=== PATIENT | female | born 1990 | race Caucasian/White ===

== ENCOUNTER 2024-03-24 21:23 | Emergency (ER) | payer MEDICAID ==
[~2024-03-24] VITALS: Ht 157.5 cm; Wt 50.6 kg
[~2024-03-24 21:23] MED LIST: FLO110IN IH; IBUP-1984 PO; METHYLTREXATE; MOT200T PO; ONDA4TAB6 PO; TRAM50TA2 PO; [UNRECOGNIZED DRUG - CODE] PO
[2024-03-24 21:34] VITALS: BP 102/62; PULSE 84; RESP 16; TEMP 98.1; O2SAT 95
== END 2024-03-25 02:26 | disposition left against medical advice (07) ==
LOC: ER 21:24
DX: R10.9 Unspecified abdominal pain (principal); Z53.21 Procedure and treatment not carried out due to patient leaving prior to being seen by health care provider

== ENCOUNTER 2024-07-11 10:56 | Outpatient (CLI) | payer MEDICAID | END 2024-07-11 23:59 | disposition home or self-care (01) | LOC: RAD 10:56 | PROVIDERS: ATTEND Podiatrist Foot & Ankle Surgery | DX: S92.311A Displaced fracture of first metatarsal bone, right foot, initial encounter for closed fracture (principal); S92.321A Displaced fracture of second metatarsal bone, right foot, initial encounter for closed fracture; M79.671 Pain in right foot; X58.XXXA Exposure to other specified factors, initial encounter; Y93.89 Activity, other specified; Y92.89 Other specified places as the place of occurrence of the external cause; Y99.8 Other external cause status | CPT/HCPCS: 73700 ==

== ENCOUNTER 2025-03-25 13:57 | Emergency (ER) | payer MEDICAID ==
[~2025-03-25] VITALS: Ht 157.5 cm; Wt 54.5 kg
[2025-03-25 14:07] VITALS: TEMP 96.9
--- NOTE | 2025-03-25 14:11 | Physician Documentation ---
History of Present Illness Stated Complaint: "MY LIVER IS GIVING OUT" Primary Medical Doctor: Dr. David FREEMAN HPI This 34-year-old female presents with right-sided flank pain. States unable to get into a comfortable position. Denies any history of kidney stones. Denies any history of alcoholism as well . pt was hunched over during interview. afebrile. Patient reports no dysuria. Patient reports last menstrual period one month prior Day of Onset: Mar 25, 2025 Medication Reconciliation Allergies: Coded Allergies: morphine (Verified Allergy, Intermediate, JAW TIGHTENS, 03/24/24) Scheduled Fluticasone Propionate 110 MCG* (Flovent Hfa 110 MCG*), 1 PUFF IH BID Ibuprofen* (Motrin*), 400 MG PO TID, (Reported) Naloxone HCl (Narcan), 1 SPRAYS BOTHNARES ONCE Ondansetron Hcl (Zofran), 1 TAB PO Q6H Tramadol HCl (Tramadol HCl), 50 MG PO Q6H Scheduled PRN Guaifenesin/D-Methorphan Hb (Robitussin-Dm Cough Syrup), 10 ML PO Q6H PRN Ibuprofen* (Motrin*), 600 MG PO TID PRN Oxycodone HCl/Acetaminophen (Percocet 5-325 mg Tablet), 1 TAB PO QID PRN PRN for breakthrough pain Miscellaneous Medications [Methyltrexate], (Reported) Past Medical History Past Medical History: Seizures Past Surgical History: other Alcohol Use: Occasionally Drug Use: none Lives with: S/O, Family Lives In: Home Occupation: employed Review of Systems All Other Systems at this time: Reviewed and Negative ROS As stated above in the HPI, otherwise all systems are reviewed and negative. Physical Exam Vital Signs: RN Vital Signs have been reviewed: Yes, Heart Rate: 80, Respiratory Rate: 15, BP: 115/78, Pulse Oximetry: 100, Weight: 54.55 Pulse Oximetry Reflects: adequate oxygenation Physical Exam General: Alert, nontoxic appearing, painful appearing, otherwise no apparent distress. Respiratory: Lungs clear, no respiratory distress. CV: Regular rate and rhythm no murmur Gastrointestinal: Soft, nontender, nondistended. Bowels sounds present. Back: Right-sided tenderness to palpation, positive right side CVA tendernerss Neurologic: Oriented x4. Psychiatric: Normal mood and affect. Skin: Normal color, warm and dry. No edema, no ecchymosis. Progress EKG/XRAY/CT/US/VASC/MRI Ultrasound #1: Impression OBSTETRIC ULTRASOUND PRIOR TO 14 WEEKS CLINICAL INDICATION: Flank Pain w/Pos Urine Preg TECHNIQUE: Multiple grayscale ultrasound images were obtained of the pelvis via transabdominal approach for obstetric evaluation. Limited color Doppler and spectral Doppler acquisitions were also obtained. COMPARISON: None FINDINGS: Examination is limited as exam was painful for the patient. Uterus: 9.9 x 4.9 x 5.8 cm. There is a single intrauterine gestational sac is visualized measuring 5.7 mm. A pole is not seen. Right adnexa: right ovary not seen. No right adnexal mass seen. Left adnexa: left ovary not seen. No left adnexal mass seen. Other: None IMPRESSION: 1. Intrauterine gestational sac which based on size could be due to an early intrauterine . No pole is seen at this time follow-up by trending beta HCGs and follow-up ultrasound in 10-14 days. 2. Ovaries are not visualized. Electronically Signed by:KILO DEL TORO MD Date & Time: 03/25/251715 Dictated by: KILO DEL TORO MD Dictation date and time: 03/25/251715 Ultrasound #2: Impression RENAL ULTRASOUND REASON FOR EXAM: R Flank Pain w/Pos Urine Preg. The patient says she feels like she needs to void often but is unable. COMPARISON: None TECHNIQUE: Real-time sector scans in multiple planes were obtained over the kidneys, ureters and bladder. FINDINGS: The right kidney measures 11.0 x 4.2 x 4.7 cm. The left kidney measures 9.7 x 4.1 x 5.0 cm. No mass is identified. There is [id number] hydronephrosis of the right kidney. There is no left hydronephrosis. The patient voided prior to the study and the urinary bladder is decompressed and not well evaluated. IMPRESSION: [id number]-[id number] hydronephrosis of the right kidney. No left hydronephrosis. Electronically Signed by:MAIA PENA MD Date & Time: 03/25/251725 Dictated by: MAIA PENA MD Dictation date and time: 03/25/251725 Medical Decision Making Findings This 34-year-old female presented with right-sided flank pain onset several hours prior to arrival, patient was quite painful on initial presentation however pain was well controlled with Toradol and IV acetaminophen, lab work demonstrate positive urine therefore CT of abdomen and pelvis was canceled and ultrasound utilized to image bilateral kidneys with right-sided hydronephrosis observed consistent with likely urolithiasis based on history and physical. OB ultrasound demonstrated evidence of intra abdominal without evidence of ectopic . Patient was otherwise hemodynamically stable remainder of physical exam benign with labs not demonstrating evidence of systemic infection,or evidence of electrolyte or metabolic derangement. Patient is appropriate for outpatient follow up and referred to urology for follow up. Patient provided home care instructions, return to care precautions, and follow up instructions which he verbalized understanding of. Differential Dx:Considerations: Include: Appendicitis, Cholangitis, Cholelithasis, Constipation, Esophagitis, Gastritis/PUD, Gastroenteritis, Ovarian cyst/torsion, Urinary obstruction, Urinary tract infection, Ur olithiasis, Other (Ectopic ) Departure Time of Disposition: 17:09 Disposition: 01 HOME / SELF CARE / HOMELESS Impression: Primary Impression: Hydronephrosis determined by ultrasound Additional Impression: Intrauterine , incidental Condition: Improved Discharge Instructions: Hydronephrosis, Kidney Stones Additional Instructions: The ultrasound of your kidney showed swelling to the kidney which is suggestive of a kidney stone, please follow up with the urologist at the number provided 1st thing tomorrow. Please follow up with a [facility], [facility], or other reproductive health care provider in regards to your positive test. Please take medications as prescribed. Please also follow up with your primary care provider in the next few days. Please return to the emergency department for any new or worsening concerning symptoms. You may use rebt-[id number]-[id number] Tylenol as needed for pain as directed by the [id number] packaging. For breakthrough pain you may use the prescribed Percocet, be aware that the Percocet also contains the same active ingredient as Tylenol, so do not take more than the recommended amount of Tylenol as directed on the [id number] packaging. You have been prescribed an opioid medication, there are risks of addiction and overdose associated with the use of opioids. The risk of addiction to an opioid for increases for those suffering both from mental health and substance use disorders. The use of an opioid while taking other central nervous system depressants including but not limited to benzodiazepines or alcohol, or other opioids increases the risk of serious side effects that can include overdose or respiratory depression that can lead to serious injury or . I have also sent you a prescription for Narcan. Referrals: NO PRIMARY CARE PROVIDER (PCP) CORRIE COHEN MD Prescriptions Naloxone HCl (Narcan) 4 Mg/Actuation [place] 1 SPRAYS BOTHNARES ONCE for 1 Day, #1 EA 0 Refills Prov: JENIFFER ROWE 03/25/25 Oxycodone HCl/Acetaminophen (Percocet 5-325 mg Tablet) 5 Mg-325 Mg Tablet 1 TAB PO QID PRN PRN for breakthrough pain for 3 Days, #12 TAB 0 Refills Prov: JENIFFER ROWE 03/25/25 Education Educated: Patient Educated regarding: diagnosis, treatment, prognosis, need for follow up Signature Scribe Signature: No scribe Attestation: The note accurately reflects work and decisions made by me.ERVIN Pathak 03/25/25 20:54 GREGORIO IRAHETA NP Mar 25, 2025 14:11 JENIFFER ROWE Mar 25, 2025 16:17
[2025-03-25] MEDS: ketorolac trometh 15mg/ml vial 15 MG/ML ML IM ONE (15:35)
[2025-03-25 15:56] LABS: BASOPHILS # (AUTO) 0.1 X10'3 (0-0.2); EOSINOPHILS % (AUTO) 0.4 % (0-6); HEMATOCRIT 35.3 % (35.0-45.0); HEMOGLOBIN 11.9 g/dl (12.0-16.0); LYMPHOCYTES # (AUTO) 1.9 X10'3 (1.1-4.8); LYMPHOCYTES % (AUTO) 17.8 % (21-51); MEAN CORPUSCULAR HEMOGLOBIN 27.7 PG (27.0-31.0); MEAN CORPUSCULAR HGB CONC 33.8 g/dL (33.0-36.5); MEAN CORPUSCULAR VOLUME 82.1 FL (78-98); MEAN PLATELET VOLUME 8.6 FL (7.4-10.4); MONOCYTES # (AUTO) 0.7 X10'3 (0-0.9); MONOCYTES % (AUTO) 7.1 % (2-12); NEUTROPHILS # (AUTO) 7.7 X10'3 (1.8-7.7); NEUTROPHILS % (AUTO) 73.7 % (42-75); PLATELET COUNT 258 X10'3 (140-440); RED CELL DISTRIBUTION WIDTH 16.5 % (11.5-14.5); WHITE BLOOD COUNT 10.5 X10'3 (4.5-11.0)
[2025-03-25 15:58] LABS: BILIRUBIN,URINE NEGATIVE (Neg); COLOR,URINE YELLOW (Yellow); GLUCOSE, URINE NEGATIVE (Neg); KETONES,URINE TRACE mg/dl (Neg); LEUKOCYTE ESTERASE ,URINE NEGATIVE (Neg); NITRITES, URINE NEGATIVE (Neg); OCCULT BLOOD,URINE NEGATIVE (Neg); PH,URINE 5.5 (4.8-8.0); PROTEIN,URINE NEGATIVE (Neg); URINE HCG POSITIVE (NEG); UROBILINOGEN,URINE 0.2 E.U/dL (0.2-1.0)
[2025-03-25 15:59] LABS: CLARITY,URINE SLIGHTLY CLOUDY (Clear); UA COLLECTION TYPE URINAL
[2025-03-25] MEDS: acetaminophen 1,000mg/100ml IV 100 ML IV ONE (16:03)
[2025-03-25 16:04] LABS: BACTERIA,URINE FEW /HPF (Neg); CAL OXALATE CRYSTALS 3+ /HPF (NEGATIVE); MUCUS STRANDS NONE SEEN /LPF (Neg); RBC,URINE 0-2 /HPF (0-2); SQUAMOUS EPITHELIAL CELL,UR FEW /LPF (FEW); WBC,URINE 0-4 /HPF (0-4)
[2025-03-25 16:09] LABS: ALANINE AMINOTRANSFERASE 20 U/L (12-78); ALBUMIN 3.5 G/DL (3.4-5.0); ALBUMIN/GLOBULIN RATIO 0.9 (1.1-1.5); ALKALINE PHOSPHATASE 65 IU/L (46-116); ANION GAP 9 (8-16); ASPARTATE AMINO TRANSFERASE 20 U/L (10-37); BILIRUBIN,TOTAL 0.4 MG/DL (0.1-1.0); BLOOD UREA NITROGEN 14 MG/DL (7-18); BUN/CREATININE RATIO 14.1 (10.0-20.0); CALCIUM 8.5 MG/DL (8.5-10.1); CHLORIDE 104 MMOL/L (99-107); CREATININE 0.99 MG/DL (0.40-0.90); GLUCOSE 92 MG/DL (70-104); LIPASE 26 U/L (16-77); POTASSIUM 3.5 MMOL/L (3.5-5.1); SODIUM 137 MMOL/L (135-145); TOTAL CARBON DIOXIDE 24.5 MMOL/L (24-32); TOTAL PROTEIN 7.3 G/DL (6.4-8.2); eCRCL 63 ML/MIN; eGFR 64 ML/MIN
--- NOTE | 2025-03-25 17:19 | RADIOLOGY REPORT ---
OBSTETRIC ULTRASOUND PRIOR TO 14 WEEKS CLINICAL INDICATION: Flank Pain w/Pos Urine Preg TECHNIQUE: Multiple grayscale ultrasound images were obtained of the pelvis via transabdominal appro ach for obstetric evaluation. Limited color Doppler and spectral Doppler acquisitions were also obtai marina. COMPARISON: None FINDINGS: Examination is limited as exam was painful for the patient. Uterus: 9.9 x 4.9 x 5.8 cm. There is a single intrauterine gestational sac is visualized measuring 5. 7 mm. A pole is not seen. Right adnexa: right ovary not seen. No right adnexal mass seen. Left adnexa: left ovary not seen. No left adnexal mass seen. Other: None IMPRESSION: 1. Intrauterine gestational sac which based on size could be due to an early intrauterine . No pole is seen at this time follow-up by trending beta HCGs and follow-up ultrasound in 10-14 days. 2. Ovaries are not visualized.
[2025-03-25] MEDS ORDERED: NALO4SPR BOTHNARES (17:21)
[2025-03-25] MEDS ORDERED: OXYC-145 PO (17:21)
--- NOTE | 2025-03-25 17:29 | RADIOLOGY REPORT ---
RENAL ULTRASOUND REASON FOR EXAM: R Flank Pain w/Pos Urine Preg. The patient says she feels like she needs to void of ten but is unable. COMPARISON: None TECHNIQUE: Real-time sector scans in multiple planes were obtained over the kidneys, ureters and yaakov dder. FINDINGS: The right kidney measures 11.0 x 4.2 x 4.7 cm. The left kidney measures 9.7 x 4.1 x 5.0 c m. No mass is identified. There is [id number] hydronephrosis of the right kidney. There is no l eft hydronephrosis. The patient voided prior to the study and the urinary bladder is decompressed an d not well evaluated. IMPRESSION: [id number] hydronephrosis of the right kidney. No left hydronephrosis.
[2025-03-25] MEDS: HYDROcodone/acetaminophen 5mg/325mg tablet PO ONE (17:34)
[2025-03-25 17:43] LABS: BETA HCG,QUANTITATIVE 1710 mIU/ml
[2025-03-25 20:51] VITALS: BP 115/78; PULSE 80; RESP 15; O2SAT 100
== END 2025-03-25 17:39 | disposition home or self-care (01) ==
LOC: ER 13:57
DX: N13.30 Unspecified hydronephrosis (principal); Z33.1 Pregnant state, incidental; Z88.5 Allergy status to narcotic agent; Z88.8 Allergy status to other drugs, medicaments and biological substances; Z3A.14 14 weeks gestation of pregnancy
CPT/HCPCS: 36415; 76770; 76801; 80053; 81001; 81025; 83690; 84702; 85025; 96372; 96374; 99285; J0131; J1885; J7030